=== PATIENT | male | born 1975 ===

== ENCOUNTER 2018-07-18 14:00 | Emergency (ER) | payer SELFPAY ==
[2018-07-18 14:29] VITALS: BP 122/83; PULSE 74; TEMP 98.3; O2SAT 99
[2018-07-18 14:31] VITALS: BMI 32.3
[2018-07-18 15:11] VITALS: RESP 18
--- NOTE | 2018-07-18 15:17 | RAD ---
Date of service: 07/18/2018 PROCEDURE: Left Knee Radiographs. HISTORY: Pain. COMPARISON: Comparison made with prior study dated 02/10 2018. FINDINGS: BONES: Normal. No fracture. JOINTS: Minimal degenerative osteoarthritis again noted with slight medial compartment narrowing and small marginal medial and possibly very tiny lateral tibial plateau osteophyte formation. Tiny posterior patellar osteophytes also present.. JOINT EFFUSION: Small suprapatellar joint effusion present. OTHER FINDINGS: None. IMPRESSION: No acute fractures. Minimal DJD with small suprapatellar joint effusion
--- NOTE | 2018-07-18 15:19 | ED PDOC ---
Lower Extremity Pain/Injury Time Seen by Provider: 07/18/18 14:31 Chief Complaint (Nursing): Lower Extremity Problem/Injury Chief Complaint (Provider): Left Knee injury History Per: Patient, Assisted Living Care Manager ([phone]) History/Exam Limitations: no limitations Onset/Duration Of Symptoms: Days (1x day) Current Symptoms Are (Timing): Still Present Additional Complaint(s): 43 year old male with no past medical history presents to the ED for an evaluation of left knee pain that started yesterday. Patient states he was at home yesterday carrying an object when he turned to the left and felt a snap in his left knee. Patient reports having localized, nonradiating pain since. Patient reports the pain worsens with ambulation and movement. Patient reports a similar episode occurred 6x months ago to the same knee and the patient was evaluated here in [facility] ED, XRay was unremarkable. Patient followed up with clinic and was sent to an unknown orthopedist, who stated the exam was normal and sent the patient to a physical therapist, but patient never pursued because the symptoms resolved spontaneously. Patient reports taking ibuprofen for pain, last dose was yesterday. Patient denies having shortness of breath or calf pain. Patient denies any falls or trauma. Otherwise: (-) ankle pain, (-) other injury. PMD: None - Knee Description Of Injury: Twisted (left) Past Medical History Reviewed: Historical Data, Nursing Documentation Vital Signs: Last Vital Signs Temp 98.3 F 07/18/18 14:49 Pulse 74 07/18/18 14:49 Resp 18 07/18/18 14:49 BP 122/83 07/18/18 14:49 Pulse Ox 99 07/18/18 14:49 - Medical History PMH: No Chronic Diseases - Surgical History Surgical History: No Surg Hx - Family History Family History: States: No Known Family Hx - Social History Alcohol: None Drugs: Denies - Home Medications Home Medications: Ambulatory Orders Medication Instructions Recorded Ibuprofen [Motrin Tab] 800 mg PO Q6H PRN #20 tab 02/10/18 Acetaminophen [Acetaminophen 8 650 mg PO Q8 PRN #21 tablet.er 07/18/18 Hour] Meloxicam [Mobic] 15 mg PO DAILY #10 tab 07/18/18 - Allergies Allergies/Adverse Reactions: Allergies Allergy/AdvReac Type Severity Reaction Status Date / Time No Known Allergies Allergy Verified 02/10/18 14:27 Review of Systems ROS Statement: Except As Marked, All Systems Reviewed And Found Negative Respiratory: Negative for: Shortness of Breath Musculoskeletal: Positive for: Other (left knee pain). Negative for: Leg Pain ((-) calf pain) Physical Exam - Reviewed Nursing Documentation Reviewed: Yes Vital Signs Reviewed: Yes - Physical Exam Comments: GENERAL APPEARANCE: Patient is awake, alert, oriented x 3, resting comfortably in no acute distress. SKIN: Warm, dry; (-) cyanosis. NECK: Supple, FROM ENT: Mucus membranes moist. Airway patent, (-) stridor. LOWER EXTREMITY: Left Knee: (+) full range of motion with pain on flexion. (+) tenderness on lateral aspect of knee (-) effusion (-) ecchymosis (-) erythema (- ) warmth (-) instability on valgus or varus stress, (-) anterior and posterior drawer sign (-) calf tenderness (+) patient is ambulating in ED with a limp CARDIOVASCULAR: (+) distal pulse. NEUROLOGIC: (+) distal sensation. RESPIRATORY: Lungs clear to auscultation bilaterally (-) rales (-) rhonchi (-) wheezing CARDIAC: (-) irregularity - ECG O2 Sat by Pulse Oximetry: 99 (RA) Pulse Ox Interpretation: Normal Medical Decision Making Medical Decision Makin:30 Clinical impression: 43 year old male with acute knee pain, sprain vs. fracture Initial plan: * XRay knee left 3 view * reevaluation 15:14 XRay Knee read and reviewed by radiologist FINDINGS: BONES: Normal. No fracture. JOINTS: Minimal degenerative osteoarthritis again noted with slight medial compartment narrowing and small marginal medial and possibly very tiny lateral tibial plateau osteophyte formation. Tiny posterior patellar osteophytes also present.. JOINT EFFUSION: Small suprapatellar joint effusion present. OTHER FINDINGS: None. IMPRESSION: No acute fractures. Minimal DJD with small suprapatellar joint effusion. Howard bandaged ordered. 1555 Howard bandaged placed by solar system installer. Placement and application verified by Kalpesh GONZALEZ. NV intact after placement. On re-evaluation, patient reports improvement of symptoms. On exam, patient remains AAOx3, in no acute distress. Lungs clear to auscultation, cardiac RRR, repeat neuro exam shows no focal findings. Vitals stable. RICE encouraged. Lab /Diagnostic results d/w the patient in great detail. Diagnosis of acute knee pain/effusion d/w the patient. Based on history, exam and diagnostic results, plan will be for outpatient follow upwith clinic/ortho. Patient instructed to follow-up with pmd / referral provided / the clinic in 1- 2 days without fail. Advised to take medication as prescribed. Return to the emergency room at any time for any new or worsening symptoms. Patient states he fully agrees with and understands discharge instructions. States that he agrees with the plan and disposition. Verbalized and repeated discharge instructions and plan. I have given the patient opportunity to ask any additional questions. Scribe Attestation: Documented by Verona Marie, acting as a scribe for Verona Humphries. Provider Scribe Attestation: All medical record entries made by the Scribe were at my direction and personally dictated by me. I have reviewed the chart and agree that the record accurately reflects my personal performance of the history, physical exam, medical decision making, and the department course for this patient. I have also personally directed, reviewed, and agree with the discharge instructions and disposition. Disposition - Clinical Impression Clinical Impression: Acute knee pain, Suprapatellar effusion of knee - Patient ED Disposition Is Patient to be Admitted: No Counseled Patient/Family Regarding: Studies Performed, Diagnosis, Need For Followup, Rx Given - Disposition [facility]errals: [facility]] Dong Collins III, MD [Staff Provider] - Disposition: Routine/Home Disposition Time: 16:05 Condition: STABLE Additional Instructions: La atencin mdica de emergencia que recibi hoy se dirigi a davey sntomas agudos. Si le recetaron algn medicamento, llnelo y tmelo segn las indicaciones. Los sntomas pueden tardar varios [place] en resolverse. Regrese al Departamento de Emergencias si davey sntomas empeoran, no mejoran o si tiene otros problemas. Comunquese con [place]man mdico dentro de 2 dur[place] para jaleesa nueva evaluacin y zoila un seguimiento o llame a bernabe de los mdicos / clnicas a los que zuniga sido referido y que figuran en el formulario de Informacin de visita al paciente que se incluye en [place] de [place]. Lleve con usted a whitman consulta de seguimiento toda la documentacin que recibi del heber junto con los medicamentos que est tomando. Nuestro tratamiento no puede reemplazar la atencin mdica continua por parte de un proveedor de atencin primaria (PCP) fuera del departamento de emergencias. Prescriptions: Acetaminophen [Acetaminophen 8 Hour] 650 mg PO Q8 PRN #21 tablet.er PRN Reason: Pain, Moderate (4-7) Meloxicam [Mobic] 15 mg PO DAILY #10 tab Instructions: Knee Pain (DC), How to Use an Elastic Bandage, Patellofemoral Pain Forms: [facility] (Armenian) Print Language: FINNISH - POA Present On Arrival: None
== END 2018-07-18 16:30 | disposition home or self-care (01) ==
LOC: H.ER 14:00
DX: M25.462 Effusion, left knee (principal); M25.562 Pain in left knee
CPT/HCPCS: 73562; 96372; 99284; J1885